=== PATIENT | female | born 1980 | race African-American/Black ===

== ENCOUNTER 2016-11-26 19:13 | Emergency (ER) | payer MEDICAID ==
[~2016-11-26 19:13] MED LIST: DEPO150I IM; Z.0.NO CURRENT MEDS
[2016-11-26 19:14] VITALS: BP 124/82; PULSE 72; RESP 16; TEMP 98.3; O2SAT 99
[2016-11-26] MEDS ORDERED: ONDANSETRON ODT 4 MG TAB PO ONE (20:00)
[2016-11-26] MEDS ORDERED: SUMAtriptan INJ 6 MG/0.5 ML VIAL SQ ONE (20:00)
--- NOTE | 2016-11-26 20:00 | PD ---
HPI Chief Complaint: Headache Time Seen by Provider: 19:52 Travel History International Travel<30 days: No Contact w/Intl Traveler<30days: No Traveled to known affect area: No History of Present Illness HPI Patient is a 36-year-old female presenting to the emergency department for evaluation of a migraine headache. Patient states the pain is frontal over her left eye. She reports photophobia, phonophobia, nausea. Patient states that she's had a history of migraines, the migraine she is presenting with today is consistent with what she has experienced in the past. She denies any weakness, slurred speech, visual changes. She reports the pain is 9 out of 10 and throbbing. She took Aleve this morning at the onset of her headache which usually eases the pain but does not alleviate it completely. PFSH Past Medical History Migraines: Yes ?: Not : 2 Para: 1 Past Surgical History Section: Yes Social History Alcohol Use: No Tobacco Use: Yes (PT STATES "1 PPD") Substance Use: No Allergies-Medications (Allergen,Severity, Reaction): Coded Allergies: albuterol (Unverified Allergy, Severe, HIVES, 11/26/16) Reported Meds & Prescriptions Reported Meds & Active Scripts Active Review of Systems Except as stated in HPI: all other systems reviewed are Neg General / Constitutional: No: Fever Eyes: Positive: Photophobia, No: Visual changes HENT: Positive: Headaches, No: Neck Pain Cardiovascular: No: Chest Pain or Discomfort Respiratory: No: Shortness of Breath Gastrointestinal: Positive: Nausea, No: Abdominal Pain Musculoskeletal: No: Myalgias Neurologic: Positive: Headache, No: Weakness, Dizziness, Syncope, Focal Abnormalities, Coordination Problem Physical Exam Narrative GENERAL: Well-developed, well-nourished, alert female. Resting comfortably in no acute distress. SKIN: Warm and dry. HEAD: Atraumatic. Normocephalic. EYES: Pupils equal and round. No scleral icterus. No injection or drainage. ENT: No nasal bleeding or discharge. Mucous membranes pink and moist. NECK: Trachea midline. No JVD. CARDIOVASCULAR: Regular rate and rhythm. RESPIRATORY: No accessory muscle use. Clear to auscultation. Breath sounds equal bilaterally. GASTROINTESTINAL: Abdomen soft, non-tender, nondistended. Hepatic and splenic margins not palpable. MUSCULOSKELETAL: Extremities without clubbing, cyanosis, or edema. No obvious deformities. NEUROLOGICAL: Awake and alert. No obvious cranial nerve deficits. Motor grossly within normal limits. Five out of 5 muscle strength in the arms and legs. Normal speech. PSYCHIATRIC: Appropriate mood and affect; insight and judgment normal. Data Data Last Documented VS Vital Signs Date Time Temp Pulse Resp B/P (MAP) Pulse Ox O2 Delivery O2 Flow Rate FiO2 11/26/16 19:14 98.3 72 16 124/82 (96) 99 Room Air Orders Orders Sumatriptan Inj (Imitrex Inj) (11/26/16 20:00) Ondansetron Odt (Zofran Odt) (11/26/16 20:00) [facility] Medical Decision Making Medical Screen Exam Complete: Yes Emergency Medical Condition: Yes Interpretation(s) Vital Signs Date Time Temp Pulse Resp B/P (MAP) Pulse Ox O2 Delivery O2 Flow Rate FiO2 11/26/16 19:14 98.3 72 16 124/82 (96) 99 Room Air Differential Diagnosis Migraine versus tension-type headache versus cluster headache versus other. Narrative Course Patient presented to the emergency department for evaluation of a migraine headache. Patient is neurologically intact, she has no focal deficits on exam. She has no contraindication to sumatriptan. She will be given sumatriptan and subcutaneous 1 dose. She will also be given Zofran for nausea. Will reassess. 2109-patient reassessed, she reports improvement in her headache. She no longer feels nauseated. Patient will be discharged home, she will be given a prescription for sumatriptan, she was encouraged to follow-up with a primary doctor [facility] Furthermore patient was encouraged to return to emergency department for any new or worsening symptoms. Patient verbalized understanding of discharge instructions. Patient is stable for discharge. Diagnosis Primary Impression: Migraine Qualified Codes: G43.909 - Migraine, unspecified, not intractable, without status migrainosus Referrals: [facility] Primary Care Physician Patient Instructions: General Instructions, Migraine Headache (ED), Sumatriptan (By mouth) Departure Forms: Tests/Procedures, Work Release Enter return to work date: Nov 27, 2016 Special Instructions: Please excuse patient from work on 11/26/2016 Additional Instructions: Follow-up with a primary doctor or at the [facility] Take medication as directed and as needed at the onset of a headache Return to emergency department for any new or worsening symptoms Med/Other Pt SpecificInfo: Prescription(s) given Scripts Ondansetron Odt (Zofran Odt) 4 Mg Tab 4 MG SL Q6HR Y for Nausea/Vomiting, #15 TAB 0 Refills Prov: Radha Greenfield 11/26/16 Sumatriptan (Sumatriptan) 50 Mg Tab 50 MG PO ONCE Y for MIGRAINE HEADACHE, #9 TAB 0 Refills If a satisfactory response has not been obtained at 2 hours, a second dose may be administered Prov: Radha Greenfield 11/26/16 Disposition: 01 DISCHARGE HOME Condition: Stable Radha Greenfield Nov 26, 2016 20:00
[2016-11-26] MEDS ORDERED: SUMA50TA2 PO (21:14)
[2016-11-26] MEDS ORDERED: ZOFR4TAB3 SL (21:14)
== END 2016-11-26 21:43 | disposition home or self-care (01) ==
LOC: NEPK 19:13
DX: G43.909 Migraine, unspecified, not intractable, without status migrainosus (principal); F17.200 Nicotine dependence, unspecified, uncomplicated
CPT/HCPCS: 96372; 99284; J3030